=== PATIENT | female | born 1965 | race Caucasian/White ===

== ENCOUNTER 2016-08-30 08:08 | Emergency (ER) | payer BC, OTHER ==
[~2016-08-30] VITALS: Ht 157.5 cm; Wt 72.6 kg
[2016-08-30 09:15] LABS: BASOPHILS % (AUTO) 1.2 % (0.0-2.0); EOSINOPHILS % (AUTO) 1.3 % (0.0-3.0); LYMPHOCYTES % (AUTO) 17.7 % (20.0-45.0); MEAN CORPUSCULAR HEMOGLOBIN 29.5 PG (27.0-31.0); MEAN CORPUSCULAR HGB CONC 32.4 G/DL (32.0-36.0); MEAN CORPUSCULAR VOLUME 91 FL (80-99); MEAN PLATELET VOLUME 7.3 FL (6.5-10.1); MONOCYTES % (AUTO) 5.1 % (1.0-10.0); NEUTROPHILS % (AUTO) 74.8 % (45.0-75.0); PLATELET COUNT 324 K/UL (150-450); RED BLOOD COUNT 4.61 M/UL (4.20-5.40); RED CELL DISTRIBUTION WIDTH 11.5 % (11.6-14.8); WHITE BLOOD COUNT 7.5 K/UL (4.8-10.8)
[2016-08-30 09:21] LABS: ALANINE AMINOTRANSFERASE 16 U/L (3-33); ALBUMIN/GLOBULIN RATIO 1.3 (1.0-2.7); ANION GAP 21 (5-15); ASPARTATE AMINO TRANSFERASE 20 U/L (5-40); CALCIUM 9.9 mg/dL (8.6-10.2); CARBON DIOXIDE 22 mEQ/L (20-30); CHLORIDE 97 mEQ/L (98-107); CREATININE 0.7 mg/dL (0.5-0.9); GLOMERULAR FILTRATION RATE > 60 mL/min (>60); HEMOLYSIS 6; POTASSIUM 3.5 mEQ/L (3.4-4.9); SODIUM 140 mEQ/L (135-145); TOTAL PROTEIN 8.1 g/dL (6.6-8.7); TROPONIN I < 0.30 ng/mL (<=0.30)
[2016-08-30 09:31] LABS: CKMB 1.5 ng/mL (< 3.8)
--- NOTE | 2016-08-30 10:46 | Diagnostic Imaging Report ---
Clinical Indication: Left-sided upper chest rib and back pain x4 months. Technique: IV administration nonionic contrast. Spiral acquisition obtained through the chest. Multiplanar reconstructions generated. Total dose length product 763 mGycm. CTDIvol(s) 8, 16, 21 mGy. Dose reduction achieved using automated exposure control Comparison: None Findings: There is a calcified granuloma in the lateral mid right upper lobe. The lungs and pleural spaces are otherwise clear. No infiltrates, effusions, masses, or congestion. The heart size is normal. No pericardial effusion. No mediastinal or hilar mass or adenopathy. Unremarkable esophagus. The included thyroid is unremarkable. No axillary or chest wall mass or adenopathy. The bones are unremarkable. Limited imaging of the upper abdomen demonstrates a 2.9 cm hypodense lesion in 4B of the liver, adjacent to the fissure for the ligamentum teres. There may be some peripheral nodular enhancement, but this is not particularly striking and cannot be stated for certain. There is a subcentimeter low-attenuation lesion within segment 5 and questionably a second at the junction of segments 5 and 4B. Impression: No acute process. No findings to explain stated clinical history of left upper chest pain. 2.9 cm hypoattenuating lesion within the left hepatic lobe. Possibly a benign hemangioma, neoplasm not excludable. Further evaluation with dedicated multiphasic CT of the liver recommended. Evidence of old granulomatous disease, with a calcified granuloma in the right upper lobe. One or more subcentimeter low-attenuation liver lesions, too small to characterize, most likely benign simple cysts or bile hamartomas The CT scanner at [facility] is accredited by the [employer] and the scans are performed using protocols designed to limit radiation exposure to as low as reasonably achievable to attain images of sufficient resolution adequate for diagnostic evaluation.
[2016-08-30] MEDS ORDERED: PEPCID20 MG ORAL (11:16)
[2016-08-30] MEDS ORDERED: ROBAXIN-750750 MG PO (11:16)
--- NOTE | 2016-08-30 11:22 | Emergency Room Report ---
History of Present Illness General Chief Complaint: Pain Source: Patient Present Illness HPI [id number] walk-in with 3-4 months of left sided upper back/side pain. Worse with stretching. No associated breast pain, auxillary swelling, fever/chills, nights sweats, weight loss. +marijuana smoker for years. Under a lot of stress. Denies known medical problems. Had mammogram this week, doesnt know result yet. Denies trauma precipitating pain. Allergies: Coded Allergies: No Known Allergies (Verified Allergy, Unknown, 11/30/10) Patient History Past Medical History: none Past Surgical History: none Pertinent Family History: none Social History: Reports: drug use, smoking Now: No Immunizations: UTD Reviewed Nursing Documentation: PMH: Agreed, PSxH: Agreed Nursing Documentation-PMH Past Medical History: No Stated History Review of Systems All Other Systems: negative except mentioned in HPI Physical Exam Vital Signs Date Time Temp Pulse Resp B/P Pulse Ox O2 Delivery O2 Flow Rate FiO2 08/30/16 08:20 98.4 101 14 151/97 97 Room Air Sp02 EP Interpretation: reviewed, abnormal General Appearance: normal inspection, well appearing, no apparent distress, alert, GCS 15, non-toxic Head: normocephalic, atraumatic Eyes: bilateral eye EOMI, bilateral eye PERRL ENT: normal ENT inspection, hearing grossly normal, normal voice Neck: normal inspection, full range of motion, supple, no bony tend Respiratory: normal inspection, lungs clear, normal breath sounds, no respiratory distress, no retraction, no accessory muscle use, no wheezing, speaking full sentences Cardiovascular #1: regular rate, rhythm, no edema Gastrointestinal: normal inspection, normal bowel sounds, non tender, soft, no guarding, no hernia Genitourinary: no CVA tenderness Musculoskeletal: normal inspection, back normal, normal range of motion, Joaquin' s Sign negative, other - No ttp to left upper back/lateral area. No ecchymoses or bruising. intact ROM of left shoulder Neurologic: normal inspection, alert, oriented x3, responsive, chief information officer III-XII nml as tested, motor strength/tone normal, speech normal Psychiatric: normal inspection, judgement/insight normal, mood/affect normal Skin: normal inspection, normal color, no rash Lymphatic: normal inspection, no adenopathy, other - No left axilla adenopathy Medical Decision Making Diagnostic Impression: Primary Impression: Pain ER Course 3-4 months left sided pain - VSS. Afebrile. - Labs: No leuks or metabolic abnormalities. - ECG NSR, no ischemia. Troponin 0. - D-dimer negative. - CT Chest no mass, lesions, nodules to explain symptoms. Noted incidental left liver lobe nodule - discussed with patient, need for PMD directed biopsy. Gave copy of CT. Understands to followup Also c/o "acid reflux." Was given Rx pepcid Advised relaxation techniques, stretching, Rx Robaxin Has PMD Dr Hennessy appt on Saturday EKG Diagnostic Results Rate: normal Rhythm: NSR ST Segments: no acute changes ASA given to the pt in ED: No Last Vital Signs Date Time Temp Pulse Resp B/P Pulse Ox O2 Delivery O2 Flow Rate FiO2 08/30/16 08:20 98.4 101 14 151/97 97 Room Air Status: improved Disposition: HOME, SELF-CARE Condition: Improved Scripts Famotidine (PEPCID) 20 Mg Tablet 20 MG ORAL BID for 14 Days, #30 TAB 0 Refills Prov: MYRTLE BARRERA M.D. 08/30/16 Methocarbamol* (ROBAXIN-750*) 750 Mg Tablet 750 MG PO TID for 7 Days, #30 TAB 0 Refills Prov: MYRTLE BARRERA M.D. 08/30/16 Referrals: NON PHYSICIAN (PCP) Additional Instructions: - Take pepcid twice daily for 2 weeks to see if it improves your heartburn - Take Robaxin up to 3x a day for left sided pain - Follow up with Dr Hennessy on Saturday, bring copy of labs, CT MYRTLE BARRERA M.D. Aug 30, 2016 11:22
[2016-08-30 11:25] VITALS: BP 145/93
== END 2016-08-30 11:30 | disposition home or self-care (01) ==
LOC: EMR 08:52
DX: M54.9 Dorsalgia, unspecified (principal); K76.9 Liver disease, unspecified; F17.200 Nicotine dependence, unspecified, uncomplicated
CPT/HCPCS: 36415; 71260; 80053; 82550; 82553; 84484; 85025; 85379; 93005; 99284; Q9967